=== PATIENT | male | born 1975 | race Two or more races ===

== ENCOUNTER 2017-12-10 08:43 | Emergency (ER) | payer OTHER, MEDICAID ==
[2017-12-10] MEDS ORDERED: TDAP ADULT 0.5 ML INJ (BOOSTRIX) IM ONE (09:13)
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
[2017-12-10] MEDS ORDERED: ACETAMINOPHEN 500 MG TAB PO ONE (09:18)
[2017-12-10 10:27] VITALS: BP 131/86
== END 2017-12-10 10:26 | disposition home or self-care (01) ==
PROC: 0HQ1XZZ Repair Face Skin, External Approach (ICD-10-PCS; principal; 2017-12-10)
DX: S01.81XA Laceration without foreign body of other part of head, initial encounter (principal); S00.83XA Contusion of other part of head, initial encounter; V43.02XA Car driver injured in collision with other type car in nontraffic accident, initial encounter; Y92.410 Unspecified street and highway as the place of occurrence of the external cause; Y99.8 Other external cause status; Z23 Encounter for immunization